=== PATIENT | female | born 1995 | race Hispanic/Latino ===

== ENCOUNTER → 2019-12-27 | Emergency (ER) | payer OTHER ==
[~2019-12-27] VITALS: Ht 160 cm; Wt 61.2 kg
[~2019-12-27] MED LIST: NORCO 5-325 TA1 EACH PO
== END ==
LOC: ED 11:20
DX: S61.412A Laceration without foreign body of left hand, initial encounter (principal); W45.8XXA Other foreign body or object entering through skin, initial encounter
CPT/HCPCS: 12004; 90471; 90715; 99282-25